=== PATIENT | female | born 1995 | race Caucasian/White ===

== ENCOUNTER 2018-03-23 16:52 | Emergency (ER) | payer OTHER ==
[~2018-03-23] VITALS: Ht 167.6 cm; Wt 54.4 kg
[~2018-03-23 16:52] MED LIST: ACETAMINOPHEN-1 EAC1 PO; ASPIR 8181 MG PO; BIRTH CONTROL
[2018-03-23] MEDS ORDERED: MUCINEX100 MG PO (16:58)
[2018-03-23] MEDS ORDERED: DAYTIME COLD-F118 ML PO (16:59)
[2018-03-23] MEDS ORDERED: ZPAK PO (17:28)
[2018-03-23] MEDS ORDERED: PREDNISONE 20 M20 M1 PO (17:28)
[2018-03-23 17:38] VITALS: BP 107/76
--- NOTE | 2018-03-24 15:04 | EKG ---
[place] [address] ELECTROCARDIOGRAM REPORT Name: JOANIE ROBERTSON [id number] Admission: 03/23/18 Attend Phys: Discharge: 03/23/18 Date of : [birth year] Report #: [id number] THIS REPORT FOR: //name// [facility] ED Test Date: 2018-03-23 Test Time: 17:00:54 Pat Name: JOANIEHal ROBERTSON Department: Room: Gender: F Clay Caster: RAY : 1995 Requested By: Martin Shaw Order Number: [id number] MD: Kyle Isaac Measurements Intervals [place] Rate: 84 P: 67 RI: 165 QRS: 101 QRSD: 104 T: 38 QT: 373 QTc: 441 Interpretive Statements Sinus rhythm Borderline right axis deviation Baseline wander in lead(s) II,III,aVF,V2,V5 Electronically Signed On 03-24-2018 15:04:08 CDT by Kyle Isaac [email or web address] <ELECTRONICALLY SIGNED> By: Kyle Isaac MD, [facility] 03/24/18 1504 D: [id number] Kyle Isaac MD, FACC /EPI
== END 2018-03-23 17:39 | disposition home or self-care (01) ==
LOC: M.ERS 16:52
DX: J06.9 Acute upper respiratory infection, unspecified (principal)